=== PATIENT | female | born 2000 | race Caucasian/White ===

== ENCOUNTER 2022-03-31 02:28 | Emergency (ER) | payer SELFPAY | END 2022-03-31 02:33 | disposition left against medical advice (07) | LOC: M ED 02:28 → EDBD 02:28 → M ED 02:33 | DX: Z53.29 Procedure and treatment not carried out because of patient's decision for other reasons (principal) ==

== ENCOUNTER 2023-04-04 03:17 | Emergency (ER) | payer OTHER, BC ==
[~2023-04-04] VITALS: Ht 162.6 cm; Wt 72.7 kg
[2023-04-04 04:14] LABS: APPEARANCE, URINE CLEAR (CLEAR); BACTERIA, URINE AUTO NEGATIVE (NEGATIVE); BILIRUBIN, URINE AUTO NEGATIVE (NEGATIVE); BLOOD, URINE BLOOD NEGATIVE (NEGATIVE); COLOR, URINE COLORLESS (YELLOW); GLUCOSE, URINE (UA) AUTO NEGATIVE (NEGATIVE); KETONE, URINE AUTO NEGATIVE (NEGATIVE); LEUKOCYTE ESTERASE, URINE AUTO NEGATIVE (NEGATIVE); NITRITE, URINE AUTO NEGATIVE (NEGATIVE); PROTEIN, URINE AUTO NEGATIVE (NEGATIVE); RBC, URINE AUTO 0 /HPF (0-3); SPECIFIC GRAVITY URINE AUTO 1.004 (1.002-1.035); SQUAMOUS EPITHELIAL CELL UR AU 0 /HPF (0-6); UROBILINOGEN, URINE AUTO 0.2 mg/dL (0.0-2.0); WBC, URINE AUTO 1 /HPF (0-3)
[2023-04-04 04:15] LABS: BASO % 0.4 % (0.0-1.0); EOS # 0.1 10^3/uL (0.0-0.5); EOS % 0.7 % (0.0-3.0); HEMATOCRIT 40.2 % (36.0-47.0); LYMPH # 3.3 10^3/uL (1.5-5.0); LYMPH % 42.5 % (24.0-44.0); MEAN CORPUSCULAR HEMOGLOBIN 32.3 pg (27.0-33.0); MEAN CORPUSCULAR HGB CONC 34.8 g/dl (32.0-36.5); MEAN CORPUSCULAR VOLUME 92.6 fl (80.0-96.0); MONO # 0.5 10^3/uL (0.0-0.8); NEUTROPHILS # 3.8 10^3/uL (1.5-8.5); NEUTROPHILS % 50.1 % (36.0-66.0); PLATELET COUNT, AUTOMATED 311 10^3/uL (150-450); RED BLOOD COUNT 4.34 10^6/uL (4.00-5.40); WHITE BLOOD COUNT 7.7 10^3/uL (4.0-10.0)
[2023-04-04 04:33] LABS: AMPHETAMINES LEVEL URINE NEGATIVE (NEGATIVE); BARBITURATES URINE NEGATIVE (NEGATIVE); BENZODIAZEPINES URINE NEGATIVE (NEGATIVE); CANNABINOIDS URINE NEGATIVE (NEGATIVE); COCAINE METABOLITE URINE NEGATIVE (NEGATIVE); METHADONE URINE NEGATIVE (NEGATIVE); OPIATES URINE NEGATIVE (NEGATIVE); PHENCYCLIDINE URINE NEGATIVE (NEGATIVE)
[2023-04-04 04:44] LABS: HEPATITIS B SURFACE ANTIBODY NEGATIVE (POSITIVE)
[2023-04-04 05:09] LABS: HCG, SERUM QUALITATIVE NEGATIVE (NEGATIVE); HIV 1&2 SCREEN NEGATIVE (NEGATIVE)
[2023-04-04 05:16] LABS: HEPATITIS C VIRUS ABY INDEX 0.13 INDEX (<0.8)
[2023-04-04 05:40] LABS: GC DNA AMPLIFICATION NEGATIVE (NEGATIVE)
[2023-04-04] MEDS ORDERED: ACETAMINOPHEN TAB 650MG DOSE (2X325MG) PO ONE ×2 (06:55)
[2023-04-04 09:33] LABS: ALBUMIN 3.8 G/DL (3.2-5.2); ALKALINE PHOSPHATASE 57 U/L (46-116); ALT/SGPT 18 U/L (7.0-40); AST/SGOT 12 U/L (<34); BILIRUBIN,TOTAL 0.4 MG/DL (0.3-1.2); BLOOD UREA NITROGEN 13 MG/DL (9-23); CALCIUM LEVEL 8.9 MG/DL (8.5-10.1); CARBON DIOXIDE LEVEL 23 MMOL/L (20-31); CHLORIDE LEVEL 110 MMOL/L (98-107); GLOMERULAR FILTRATION RATE > 60.0 (>60); GLUCOSE, FASTING 90 MG/DL (60-100); POTASSIUM SERUM 4.2 MMOL/L (3.5-5.1); SODIUM LEVEL 142 MMOL/L (136-145); TOTAL PROTEIN 7.3 G/DL (5.7-8.2)
[2023-04-04] MEDS ORDERED: IBUPROFEN 400MG TAB PO ONE (11:25)
[2023-04-04] MEDS ORDERED: ULIPRISTAL ACETATE 30MG TAB (ELLA) PO ONE (16:30)
[2023-04-04] MEDS ORDERED: ONDANSETRON 4MG ORAL DISINTEGRATING TAB PO ONE (16:30)
[2023-04-04 17:47] VITALS: BP 125/73; TEMP 98.3; O2SAT 99
== END 2023-04-04 18:00 | disposition home or self-care (01) ==
LOC: M ED 03:17
DX: T76.21XA Adult sexual abuse, suspected, initial encounter (principal); F10.929 Alcohol use, unspecified with intoxication, unspecified; Z88.8 Allergy status to other drugs, medicaments and biological substances

== ENCOUNTER → 2023-05-24 | Outpatient (REF) | payer BC ==
[~2023-05-24] MED LIST: QUET50TA4
== END ==
LOC: M LAB REF 09:35
PROVIDERS: ATTEND Physician Assistant
DX: N30.01 Acute cystitis with hematuria (principal)

== ENCOUNTER 2023-11-15 01:32 | Emergency (ER) | payer BC, SELFPAY ==
[~2023-11-15] VITALS: Ht 154.9 cm; Wt 68.2 kg
[2023-11-15 01:46] VITALS: TEMP 98.6
[2023-11-15] MEDS: ONDANSETRON 4MG 2ML VIAL IV ONE (02:05)
[2023-11-15] MEDS: NS 1,000 ML IV ONE (02:05)
[2023-11-15] MEDS: fentaNYL 100 MCG/2 ML INJECTION IV ONE (02:06)
[2023-11-15 02:08] LABS: BASO % 0.4 % (0.0-1.0); EOS # 0.1 10^3/uL (0.0-0.5); EOS % 1.5 % (0.0-3.0); HEMATOCRIT 43.2 % (36.0-47.0); HEMOGLOBIN 15.1 g/dl (12.0-15.5); LYMPH # 3.4 10^3/uL (1.5-5.0); LYMPH % 42.9 % (24.0-44.0); MEAN CORPUSCULAR HEMOGLOBIN 32.1 pg (27.0-33.0); MEAN CORPUSCULAR VOLUME 91.9 fl (80.0-96.0); MONO # 0.4 10^3/uL (0.0-0.8); MONO % 4.8 % (2.0-8.0); NEUTROPHILS % 50.1 % (36.0-66.0); PLATELET COUNT, AUTOMATED 304 10^3/uL (150-450); WHITE BLOOD COUNT 7.9 10^3/uL (4.0-10.0)
[2023-11-15 02:39] LABS: ETHYL ALCOHOL (ETHANOL) 0.198 % (0.000-0.010)
[2023-11-15 02:41] LABS: BLOOD UREA NITROGEN 8 MG/DL (9-23); CALCIUM LEVEL 9.1 MG/DL (8.5-10.1); CARBON DIOXIDE LEVEL 25 MMOL/L (20-31); CHLORIDE LEVEL 106 MMOL/L (98-107); CREATININE FOR GFR 0.76 MG/DL (0.55-1.30); GLOMERULAR FILTRATION RATE > 60.0 (>60); GLUCOSE, FASTING 93 MG/DL (60-100); SODIUM LEVEL 141 MMOL/L (136-145)
[2023-11-15 03:16] VITALS: BP 153/82; O2SAT 98
== END 2023-11-15 04:27 | disposition home or self-care (01) ==
LOC: M ED 01:32
DX: S80.12XA Contusion of left lower leg, initial encounter (principal); F10.129 Alcohol abuse with intoxication, unspecified; W19.XXXA Unspecified fall, initial encounter; Y92.9 Unspecified place or not applicable; Y93.9 Activity, unspecified; Y99.9 Unspecified external cause status; Z88.8 Allergy status to other drugs, medicaments and biological substances
CPT/HCPCS: 73502; 73560; 73590; 73600; 80048; 82077; 83735; 85025; 96374; 96375; 99284; J2405; J3010

== ENCOUNTER 2024-01-10 09:41 | Emergency (ER) | payer BC ==
[2024-01-10] MEDS: MULTIVITAMIN -ADULT INJECTION 10 ML, THIAMINE INJection 100 MG, FOLIC ACID 1 MG in NS 1... IV ONE (09:55)
[2024-01-10] MEDS ORDERED: LORazepam 2 MG/ML 1ML VIAL IV PRN (09:55)
[2024-01-10 10:01] LABS: BASO % 0.3 % (0.0-1.0); EOS # 0.1 10^3/uL (0.0-0.5); EOS % 0.5 % (0.0-3.0); HEMOGLOBIN 14.2 g/dl (12.0-15.5); LYMPH # 1.6 10^3/uL (1.5-5.0); LYMPH % 14.7 % (24.0-44.0); MEAN CORPUSCULAR HEMOGLOBIN 32.1 pg (27.0-33.0); MEAN CORPUSCULAR HGB CONC 35.5 g/dl (32.0-36.5); MEAN CORPUSCULAR VOLUME 90.5 fl (80.0-96.0); MONO # 0.8 10^3/uL (0.0-0.8); MONO % 6.7 % (2.0-8.0); NEUTROPHILS # 8.7 10^3/uL (1.5-8.5); NEUTROPHILS % 77.4 % (36.0-66.0); PLATELET COUNT, AUTOMATED 285 10^3/uL (150-450); RED BLOOD COUNT 4.42 10^6/uL (4.00-5.40); WHITE BLOOD COUNT 11.2 10^3/uL (4.0-10.0)
[2024-01-10] MEDS: NS 1,000 ML IV ONE (10:13)
[2024-01-10 10:14] LABS: INR 0.92; PROTHROMBIN TIME 12.1 SECONDS (12.5-14.5)
[2024-01-10 10:19] LABS: OSMOLALITY SERUM 293 MOSM/KG (275-295)
[2024-01-10 10:20] LABS: ETHYL ALCOHOL (ETHANOL) 0.007 % (0.000-0.010)
[2024-01-10 10:21] LABS: CPK CREATINE PHOSPHOKINASE 90 U/L (34-145)
[2024-01-10 10:22] LABS: ALBUMIN 4.1 G/DL (3.2-5.2); ALKALINE PHOSPHATASE 80 U/L (46-116); ALT/SGPT 19 U/L (7.0-40); AST/SGOT 15 U/L (<34); BILIRUBIN,DIRECT 0.1 MG/DL (<0.4); BILIRUBIN,TOTAL 0.4 MG/DL (0.3-1.2); BLOOD UREA NITROGEN 9 MG/DL (9-23); CALCIUM LEVEL 9.2 MG/DL (8.5-10.1); CARBON DIOXIDE LEVEL 24 MMOL/L (20-31); CHLORIDE LEVEL 106 MMOL/L (98-107); CREATININE FOR GFR 0.62 MG/DL (0.55-1.30); GLOMERULAR FILTRATION RATE > 60.0 (>60); GLUCOSE, FASTING 92 MG/DL (60-100); HCG, SERUM QUALITATIVE NEGATIVE (NEGATIVE); POTASSIUM SERUM 3.9 MMOL/L (3.5-5.1); SALICYLATE LEVEL < 3.0 MG/DL (<30); SODIUM LEVEL 137 MMOL/L (136-145)
[2024-01-10 10:27] LABS: THYROID STIMULATING HORMONE 1.051 uIU/ML (0.55-4.78)
[2024-01-10 10:31] LABS: METHADONE URINE NEGATIVE (NEGATIVE); OPIATES URINE NEGATIVE (NEGATIVE); PHENCYCLIDINE URINE NEGATIVE (NEGATIVE)
[2024-01-10 10:32] LABS: AMPHETAMINES LEVEL URINE NEGATIVE (NEGATIVE); BARBITURATES URINE NEGATIVE (NEGATIVE); BENZODIAZEPINES URINE NEGATIVE (NEGATIVE); CANNABINOIDS URINE NEGATIVE (NEGATIVE); COCAINE METABOLITE URINE NEGATIVE (NEGATIVE)
[2024-01-10 10:33] LABS: CK-MB VALUE MASS < 1.0 NG/ML (<3.6)
[2024-01-10 10:37] LABS: FREE T4 1.12 NG/DL (0.89-1.76)
[2024-01-10 10:39] LABS: CPK CREATINE PHOSPHOKINASE 84 U/L (34-145); MB/CK RELATIVE INDEX 1.19 (< OR =4)
[2024-01-10 11:04] LABS: HEPATITIS B SURFACE ANTIBODY NEGATIVE (POSITIVE)
[2024-01-10] MEDS ORDERED: THIAMINE 200MG 2ML VIAL IM ONE (11:15)
[2024-01-10 11:16] LABS: HEPATITIS B SURFACE ANTIGEN NEGATIVE (NEGATIVE)
[2024-01-10 11:28] LABS: HIV 1&2 SCREEN NEGATIVE (NEGATIVE)
[2024-01-10] MEDS: MULTIVITAMINS/MINERALS THERAP 1 TAB PO ONE (11:35)
[2024-01-10] MEDS: THIAMINE 100 MG TAB PO ONE (11:35)
[2024-01-10] MEDS: FOLIC ACID 1MG TAB PO ONE (11:35)
[2024-01-10 11:37] LABS: HEPATITIS C VIRUS ABY INDEX < 0.02 INDEX (<0.8)
[2024-01-10] MEDS ORDERED: FOLI1TAB11 PO (12:22)
[2024-01-10] MEDS ORDERED: MULT-90 PO (12:22)
[2024-01-10] MEDS ORDERED: THIA100T7 PO (12:22)
[2024-01-10 12:30] VITALS: BP 122/79; TEMP 98.7; O2SAT 100
== END 2024-01-10 12:47 | disposition home or self-care (01) ==
LOC: M ED 09:41 → EDBD 09:41 → MERGE 09:41 → M ED 12:47
DX: R56.9 Unspecified convulsions (principal); F10.10 Alcohol abuse, uncomplicated; F17.200 Nicotine dependence, unspecified, uncomplicated; F14.10 Cocaine abuse, uncomplicated; Z79.899 Other long term (current) drug therapy; Z88.8 Allergy status to other drugs, medicaments and biological substances

== ENCOUNTER 2024-01-10 16:36 | Emergency (ER) | payer BC ==
[~2024-01-10] VITALS: Ht 162.6 cm; Wt 74.5 kg
[~2024-01-10 16:36] MED LIST changes: +FOLI1TAB11 PO; +MULT-90 PO; +THIA100T7 PO
[2024-01-10 17:32] VITALS: O2SAT 98
[2024-01-10] MEDS: ACETAMINOPHEN 500 MG TAB PO ONE (18:59)
[2024-01-10 19:06] VITALS: BP 128/84; TEMP 97.6
[2024-01-10 19:52] LABS: Trichomonas vaginalis (AMP) NOT DETECTED (NEGATIVE)
[2024-01-10 20:15] LABS: GC DNA AMPLIFICATION NEGATIVE (NEGATIVE)
== END 2024-01-10 19:08 | disposition home or self-care (01) ==
LOC: MERGE 16:36 → M ED 16:36
DX: M54.50 Low back pain, unspecified (principal); Y04.8XXA Assault by other bodily force, initial encounter; Y92.9 Unspecified place or not applicable; Y93.9 Activity, unspecified; Y99.9 Unspecified external cause status; Z79.899 Other long term (current) drug therapy; Z88.8 Allergy status to other drugs, medicaments and biological substances

== ENCOUNTER 2024-01-13 17:11 | Emergency (ER) | payer BC ==
[~2024-01-13] VITALS: Ht 162.6 cm; Wt 77.2 kg
[2024-01-13 17:12] VITALS: BP 139/78; TEMP 98.6; O2SAT 100
[2024-01-13] MEDS ORDERED: LEXA5TAB13 PO (17:21)
[2024-01-13] MEDS ORDERED: ACYC1TAB (17:21)
== END 2024-01-13 18:29 | disposition left against medical advice (07) ==
LOC: M ED 17:11
DX: Z53.21 Procedure and treatment not carried out due to patient leaving prior to being seen by health care provider (principal)

== ENCOUNTER → 2025-02-13 | Outpatient (CLI) | payer SELFPAY ==
[~2025-02-13] MED LIST changes: +ACYC-438; +LEXA5TAB13 PO
== END ==
LOC: M LAB 11:32
PROVIDERS: ATTEND Nurse Practitioner Family
DX: N92.6 Irregular menstruation, unspecified (principal)

== ENCOUNTER → 2025-02-25 | Outpatient (CLI) | payer SELFPAY | LOC: M LAB 15:56 | PROVIDERS: ATTEND Nurse Practitioner Family | DX: N92.6 Irregular menstruation, unspecified (principal) ==

== ENCOUNTER 2025-04-20 13:32 | Emergency (ER) | payer BC, SELFPAY ==
[~2025-04-20] VITALS: Ht 162.6 cm; Wt 86.0 kg
[2025-04-20] MEDS ORDERED: AZO-95TA3 PO (13:40)
[2025-04-20 14:09] LABS: KETONE, URINE AUTO RFX NEGATIVE (NEGATIVE); MUCUS, URINE RFX SMALL (NEGATIVE); RBC, URINE AUTO RFX 3 /HPF (0-3); SQUAM EPITHELIAL CELL UR AURFX 2 /HPF (0-6)
[2025-04-20 14:27] LABS: LEUKOCYTE ESTERASE UR AUTO RFX TRACE (NEGATIVE); NITRITE, URINE AUTO RFX POSITIVE (NEGATIVE); WBC, URINE AUTO RFX 147 /HPF (0-3)
[2025-04-20 14:43] LABS: URINE PREG TEST NEGATIVE (NEGATIVE)
[2025-04-20 15:36] LABS: BASO # 0.0 10^3/uL (0.0-0.2); BASO % 0.3 % (0.0-1.0); EOS # 0.1 10^3/uL (0.0-0.5); EOS % 1.0 % (0.0-3.0); LYMPH # 2.3 10^3/uL (1.5-5.0); LYMPH % 25.8 % (24.0-44.0); MONO # 0.5 10^3/uL (0.0-0.8); MONO % 5.9 % (2.0-8.0); NEUTROPHILS # 5.9 10^3/uL (1.5-8.5); NEUTROPHILS % 66.8 % (36.0-66.0); PLATELET COUNT, AUTOMATED 256 10^3/uL (150-450)
[2025-04-20 15:59] LABS: ALT/SGPT 27 U/L (7.0-40); AST/SGOT 25 U/L (<34); CALCIUM LEVEL 8.7 MG/DL (8.5-10.1); CARBON DIOXIDE LEVEL 28 MMOL/L (20-31); CHLORIDE LEVEL 106 MMOL/L (98-107); CREATININE FOR GFR 0.73 MG/DL (0.55-1.30); GLOMERULAR FILTRATION RATE > 90.0 (>60); POTASSIUM SERUM 4.5 MMOL/L (3.5-5.1); SODIUM LEVEL 140 MMOL/L (136-145)
[2025-04-20] MEDS ORDERED: ISOVUE-370 76% 100 ML VIAL As Ordered ONE (16:07)
[2025-04-20] MEDS ORDERED: CIPR250T26 PO (16:46)
[2025-04-20] MEDS: CIPROFLOXACIN 400 MG in IV 1 EA IV ONE (16:55)
[2025-04-20 18:02] VITALS: BP 112/68; TEMP 97.8; O2SAT 95
[2025-04-21] MEDS ORDERED: CEFD1CAP9 PO (13:24)
== END 2025-04-20 18:05 | disposition home or self-care (01) ==
LOC: M ED 13:32
DX: N39.0 Urinary tract infection, site not specified (principal); Z88.1 Allergy status to other antibiotic agents
CPT/HCPCS: 74177; 80048; 80076; 81001; 83690; 84703; 85025; 87088; 87186; 93041; 96365; 99284; J0744; Q9967

== ENCOUNTER → 2025-05-01 | Outpatient (CLI) | payer BC ==
[~2025-05-01] MED LIST changes: +AZO-95TA3 PO; +CEFD1CAP9 PO; +CIPR250T26 PO
== END ==
LOC: M LAB 16:53
PROVIDERS: ATTEND Nurse Practitioner Family
DX: N92.6 Irregular menstruation, unspecified (principal)

== ENCOUNTER → 2025-05-03 | Outpatient (CLI) | payer BC | LOC: M LAB 16:02 | DX: Z30.09 Encounter for other general counseling and advice on contraception (principal); N92.6 Irregular menstruation, unspecified ==

== ENCOUNTER → 2025-05-08 | Outpatient (CLI) | payer BC | LOC: M LAB 16:34 | PROVIDERS: ATTEND Nurse Practitioner Family | DX: N92.6 Irregular menstruation, unspecified (principal) ==

== ENCOUNTER → 2025-05-10 | Outpatient (CLI) | payer BC | LOC: M LAB 13:55 | PROVIDERS: ATTEND Nurse Practitioner Family | DX: N92.6 Irregular menstruation, unspecified (principal) ==

== ENCOUNTER 2025-05-22 15:49 | Emergency (ER) | payer BC ==
[~2025-05-22] VITALS: Ht 162.6 cm; Wt 85.3 kg
[2025-05-22] MEDS ORDERED: MULTTAB20 PO (16:02)
[2025-05-22 17:08] LABS: BASO # 0.0 10^3/uL (0.0-0.2); BASO % 0.2 % (0.0-1.0); EOS # 0.1 10^3/uL (0.0-0.5); EOS % 1.5 % (0.0-3.0); LYMPH # 2.6 10^3/uL (1.5-5.0); LYMPH % 32.0 % (24.0-44.0); MONO # 0.5 10^3/uL (0.0-0.8); MONO % 5.9 % (2.0-8.0); NEUTROPHILS # 4.8 10^3/uL (1.5-8.5); NEUTROPHILS % 60.0 % (36.0-66.0); PLATELET COUNT, AUTOMATED 244 10^3/uL (150-450)
[2025-05-22 17:34] LABS: HCG, SERUM QUALITATIVE POSITIVE (NEGATIVE)
[2025-05-22 17:39] LABS: ALT/SGPT 25 U/L (7.0-40); AST/SGOT 28 U/L (<34); CALCIUM LEVEL 9.0 MG/DL (8.5-10.1); CARBON DIOXIDE LEVEL 25 MMOL/L (20-31); CHLORIDE LEVEL 106 MMOL/L (98-107); CREATININE FOR GFR 0.69 MG/DL (0.55-1.30); GLOMERULAR FILTRATION RATE > 90.0 (>60); POTASSIUM SERUM 4.1 MMOL/L (3.5-5.1); SODIUM LEVEL 141 MMOL/L (136-145)
[2025-05-22 20:01] LABS: HCG, SERUM QUANTITATIVE 52818.3 MIU/ML (<4.2)
[2025-05-22 21:47] LABS: KETONE, URINE AUTO RFX NEGATIVE (NEGATIVE); LEUKOCYTE ESTERASE UR AUTO RFX NEGATIVE (NEGATIVE); MUCUS, URINE RFX SMALL (NEGATIVE); NITRITE, URINE AUTO RFX NEGATIVE (NEGATIVE); RBC, URINE AUTO RFX 0 /HPF (0-3); SQUAM EPITHELIAL CELL UR AURFX 1 /HPF (0-6); WBC, URINE AUTO RFX 0 /HPF (0-3)
[2025-05-23] VITALS: BP 123/59; TEMP 97.9; O2SAT 98
== END 2025-05-23 00:03 | disposition home or self-care (01) ==
LOC: M ED 15:49
DX: O26.891 Other specified pregnancy related conditions, first trimester (principal); O99.341 Other mental disorders complicating pregnancy, first trimester; Z3A.01 Less than 8 weeks gestation of pregnancy; Z86.19 Personal history of other infectious and parasitic diseases; Z79.899 Other long term (current) drug therapy; Z88.1 Allergy status to other antibiotic agents

== ENCOUNTER → 2025-06-28 | Outpatient (CLI) | payer BC ==
[~2025-06-28] MED LIST changes: +MULTTAB20 PO
== END ==
LOC: M PLALAB 08:28
PROVIDERS: ATTEND Nurse Practitioner Family
DX: O98.511 Other viral diseases complicating pregnancy, first trimester (principal); Z3A.00 Weeks of gestation of pregnancy not specified; Z31.430 Encounter of female for testing for genetic disease carrier status for procreative management

== ENCOUNTER → 2025-07-14 | Outpatient (CLI) | payer BC ==
[2025-07-14 11:47] LABS: PLATELET COUNT, AUTOMATED 261 10^3/uL (150-450)
[2025-07-14 12:46] LABS: HIV 1&2 SCREEN NEGATIVE (NEGATIVE)
[2025-07-14 12:53] LABS: HEPATITIS C VIRUS ABY INDEX 0.05 INDEX (<0.8)
== END ==
LOC: M PLALAB 08:43
PROVIDERS: ATTEND Nurse Practitioner Family
DX: Z34.91 Encounter for supervision of normal pregnancy, unspecified, first trimester (principal)